=== PATIENT | female | born 1965 | race Caucasian/White ===

== ENCOUNTER 2019-02-09 17:12 | Emergency (ER) | payer OTHER ==
[~2019-02-09] VITALS: Ht 175.3 cm; Wt 95.3 kg
[2019-02-09] MEDS ORDERED: MACROBID 100 M100 MG PO (17:29)
[2019-02-09 17:30] LABS: URINE BILIRUBIN NEGATIVE (Negative); URINE BLOOD NEGATIVE (Negative); URINE CLARITY HAZY; URINE COLOR YELLOW; URINE GLUCOSE-RANDOM NEGATIVE (Negative); URINE KETONES NEGATIVE (Negative); URINE LEUKOCYTES-REFLEX 1+ (Negative); URINE NITRITE-REFLEX NEGATIVE (Negative); URINE PROTEIN NEGATIVE (Negative); URINE SPECIFIC GRAVITY 1.025 (1.005-1.030); URINE UROBILINOGEN 0.2 E.U./dl (0.2-1.0)
[2019-02-09 17:37] LABS: BACTERIA-REFLEX >30 Many /HPF (None Seen); CASTS None Seen /LPF (None Seen); SQUAMOUS >10 Many /LPF (0-3); URINE RBC 0-2 Rare /HPF (0-2); URINE WBC-REFLEX 0-5 Rare /HPF (0-5)
[2019-02-09 17:38] LABS: CRYSTALS None Seen /LPF (None Seen)
[2019-02-09 18:08] LABS: ABSOLUTE BASOPHILS 0.1 thou/uL (0.0-0.2); ABSOLUTE EOSINOPHILS 0.1 thou/uL (0.0-0.7); ABSOLUTE LYMPHOCYTES 1.9 thou/uL (0.8-5.3); ABSOLUTE MONOCYTES 0.7 thou/uL (0.0-1.2); BASOPHILS 1.1 %; EOSINOPHILS 1.4 %; HEMATOCRIT 42.2 % (37.0-47.0); HEMOGLOBIN 14.3 gm/dL (12.0-15.0); MCH 28.3 pg (26.0-34.0); MCHC 33.7 g/dL (28.0-37.0); MCV 83.8 fL (80.0-100.0); MPV 9.7 fl. (7.2-11.1); NUCLEATED RBCS 0 /100WBC; PLATELET COUNT* 240 thou/uL (150-400); POLYS 59.5 %; RBC 5.04 mil/uL (4.20-5.00); RDW-CV 13.6 % (10.5-14.5); WBC 6.7 thou/uL (4.0-11.0)
[2019-02-09 18:12] LABS: CALCIUM 9.1 mg/dL (8.5-10.1); CREATININE 0.9 mg/dL (0.6-1.3)
[2019-02-09 18:16] LABS: ALBUMIN 3.6 g/dL (3.4-5.0); TOTAL BILIRUBIN 0.2 mg/dL (<0.1-1.0); TOTAL PROTEIN 8.2 g/dL (6.4-8.2)
[2019-02-09] MEDS ORDERED: ONDANSETRON HCL4 M2 PO (19:37)
[2019-02-09] MEDS ORDERED: KEFLEX500 M1 PO (19:37)
[2019-02-09 19:48] VITALS: BP 139/81
== END 2019-02-09 19:49 | disposition home or self-care (01) ==
LOC: M.ERS 17:12
PROVIDERS: Nurse Practitioner Family
DX: N39.0 Urinary tract infection, site not specified (principal); R10.813 Right lower quadrant abdominal tenderness; R10.814 Left lower quadrant abdominal tenderness; Z87.440 Personal history of urinary (tract) infections

== ENCOUNTER 2020-02-06 17:51 | Emergency (ER) | payer OTHER ==
[~2020-02-06] VITALS: Ht 175.3 cm; Wt 104.3 kg
[~2020-02-06 17:51] MED LIST: KEFLEX500 M1 PO; MACROBID 100 M100 MG PO; ONDANSETRON HCL4 M2 PO
[2020-02-06] MEDS ORDERED: DOXYCYCLINE 10100 MG PO (18:22)
[2020-02-06] MEDS ORDERED: NORCO 5-325 TA1 EAC2 PO (18:22)
[2020-02-06 18:27] VITALS: BP 153/96
== END 2020-02-06 18:27 | disposition home or self-care (01) ==
LOC: M.ERS 17:51
DX: L02.211 Cutaneous abscess of abdominal wall (principal); Z87.440 Personal history of urinary (tract) infections; Z98.890 Other specified postprocedural states